=== PATIENT | male | born 1990 | race Caucasian/White ===

== ENCOUNTER 2017-04-19 22:08 | Emergency (ER) | payer SELFPAY ==
[2017-04-19] MEDS ORDERED: AZITHROMYCIN 500 MG TABLET PO ONE (22:19)
[2017-04-19] MEDS ORDERED: HYDROCODONE/APAP 5/325MG TABLET PO ONE (22:19)
--- NOTE | 2017-04-19 22:20 | Emergency Department Record ---
History of Present Illness - General Stated complaint: TOOTH PAIN Time Seen by Provider: 04/19/17 22:10 Source: Patient - History of Present Illness Initial comments: The patient has had 3 weeks of tooth pain of his left upper first incisor. Now the pain has spread to his entire upper incisors and into his face alongside his nose. He saw a dentist in the past for this but now it is worse. No relief with tylenol. He doesn't take NSAIDS because he only has one kidney. MD complaint: Tooth pain - Related Data Previous Rx's Medication Instructions Recorded Azithromycin [Zithromax] 500 mg PO DAILY #4 tab 04/19/17 Hydrocodone/Acetaminophen [Haslet 1 each PO Q6HR #20 tablet 04/19/17 5-325 Tablet] Allergies Allergy/AdvReac Type Severity Reaction Status Date / Time Penicillins Allergy Intermediate HIVES Verified 05/12/16 18:09 venom-honey bee Allergy DIFFICULTY Verified 05/12/16 18:09 [bee venom (honey bee)] BREATHING Review of Systems Reviewed: No additional complaints except as noted below Constitutional: Reports: As per HPI. Denies: Chills, Fever, Malaise, Night sweats, Weakness, Weight change Eyes: Reports: As per HPI. Denies: Eye discharge, Eye pain, Photophobia, Vision change ENT: Reports: As per HPI. Denies: Congestion, Dental pain, Ear pain, Epistaxis , Hearing loss, Throat pain Respiratory: Reports: As per HPI. Denies: Cough, Dyspnea, Hemoptysis, Stridor, Wheezes Cardiovascular: Reports: As per HPI. Denies: Arrhythmia, Chest pain, Dyspnea on exertion, Edema, Murmurs, Orthopnea, Palpitations, Paroxysmal nocturnal dyspnea, Rheumatic Fever, Syncope Endocrine: Reports: As per HPI. Denies: Fatigue, Heat or cold intolerance, Polydipsia, Polyuria Gastrointestinal: Reports: As per HPI. Denies: Abdominal pain, Constipation, Diarrhea, Hematemesis, Hematochezia, Melena, Nausea, Vomiting Genitourinary: Reports: As per HPI. Denies: Dysuria, Frequency, Hematuria, Incontinence, Retention, Testicular pain, Testicular mass, Urgency Musculoskeletal: Reports: As per HPI. Denies: Arthralgia, Back pain, Gout, Joint swelling, Myalgia, Neck pain Skin: Reports: As per HPI. Denies: Bruising, Change in color, Change in hair/ nails, Lesions, Pruritus, Rash Neurological: Reports: As per HPI. Denies: Abnormal gait, Confusion, Headache, Numbness, Paresthesias, Seizure, Tingling, Tremors, Vertigo, Weakness Psychiatric: Reports: As per HPI. Denies: Anxiety, Auditory hallucinations, Depression, Homicidal thoughts, Suicidal thoughts, Visual hallucinations Hematological/Lymphatic: Reports: As per HPI. 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 negative: External canal tenderness Nasal Exam: Normal inspection. negative: Discharge, Sinus tenderness Mouth exam: Normal external inspection, Tongue normal Teeth exam: Normal inspection. negative: Dental caries Throat exam: Normal inspection. negative: Tonsillar erythema, Tonsillar exudate Image of Mouth/Teeth: 1 - tooth #9 tender with pain extending into and past the gum line and up to beside the nares - Neck Neck exam: Normal inspection, Full ROM. negative: Tenderness - Respiratory Respiratory exam: Normal lung sounds bilaterally. negative: Respiratory distress - Cardiovascular Cardiovascular Exam: Regular rate, Normal rhythm, Normal heart sounds - GI/Abdominal GI/Abdominal exam: Soft, Normal bowel sounds. negative: Tenderness - Rectal Rectal exam: Deferred - exam: Deferred - Extremities Extremities exam: Normal inspection, Full ROM, Normal capillary refill. negative: Tenderness - Back Back exam: Reports: Normal inspection, Full ROM. Denies: Muscle spasm, Rash noted, Tenderness - Neurological Neurological exam: Alert, Normal gait, Oriented X3, Reflexes normal - Psychiatric Psychiatric exam: Normal affect, Normal mood - Skin Skin exam: Dry, Intact, Normal color, Warm Medical Decision Making - Management Options MDM Management: Additional Work-up Planned (e.g. ADM/Transfer/OP Study) (Follow up with Dentist in office this week.) Disposition Disposition: Discharge Clinical Impression: Pain, dental Disposition: Home, Self-Care Condition: (1) Good Instructions: Dental Abscess (ED), Toothache (ED) Additional Instructions: Take antibiotics as directed until gone Take norco one every 6 hours as needed for pain. Follow up with dentist in office this week as previously arranged. Soft diet. Prescriptions: Hydrocodone/Acetaminophen [Haslet 5-325 Tablet] 1 each PO Q6HR #20 tablet Azithromycin [Zithromax] 500 mg PO DAILY #4 tab Quality - Quality Measures Quality Measures: N/A - Blood Pressure Screening Systolic Measurement: ~ Screening for High Blood Pressure: < Normal BP, F/U Not Required > [G8783] Normal BP Follow-up Interventions: No follow-up required
== END 2017-04-19 22:44 | disposition home or self-care (01) ==
LOC: ER 22:08
DX: K08.89 Other specified disorders of teeth and supporting structures (principal)
CPT/HCPCS: 99282

== ENCOUNTER 2017-06-27 12:32 | Emergency (ER) | payer SELFPAY ==
--- NOTE | 2017-06-27 13:53 | Emergency Department Record ---
History of Present Illness - General Chief Complaint: Laceration(s) Stated Complaint: CUT ON RT HAND, MAY HAVE GLASS IN IT Time Seen by Provider: 06/27/17 12:54 Source: Patient Mode of Arrival: Ambulatory Limitations: No limitations - History of Present Illness Initial Commments: pt cut his hand on glass that shattered yesterday. it is already closing but pt fears he has glass in it. Onset/Timin -: Days(s) Extremity Location: Right: Hand Place: Home Context: Accidental Associated Symptoms: None - Sonya Coma Scale Eye Response: (4) Open spontaneously Motor Response: (6) Obeys commands Verbal Response: (5) Oriented [place] Total: 15 - Related Data Hx Tetanus Toxoid Vaccination: Yes Year of Tetanus Vaccination: 2013 Home Medications Medication Instructions Recorded Confirmed Last Taken No Home Med [NO HOME MEDS] 06/27/17 06/27/17 Unknown Allergies Allergy/AdvReac Type Severity Reaction Status Date / Time Penicillins Allergy Intermediate HIVES Verified 05/12/16 18:09 venom-honey bee Allergy DIFFICULTY Verified 05/12/16 18:09 [bee venom (honey bee)] BREATHING Travel Screening - Travel/Exposure Within Last 30 Days Have you traveled within the last 30 days?: No - Travel/Exposure Within Last Year Have you traveled outside the [place] in the last year?: No - Additonal Travel Details Have you been exposed to anyone with a communicable illness?: No - Travel Symptoms Symptom Screening: None Review of Systems Reviewed: No additional complaints except as noted below Constitutional: Reports: As per HPI. Denies: Chills, Fever, Malaise, Night sweats, Weakness, Weight change Eyes: Reports: As per HPI. Denies: Eye discharge, Eye pain, Photophobia, Vision change ENT: Reports: As per HPI. Denies: Congestion, Dental pain, Ear pain, Epistaxis , Hearing loss, Throat pain Respiratory: Reports: As per HPI. Denies: Cough, Dyspnea, Hemoptysis, Stridor, Wheezes Cardiovascular: Reports: As per HPI. Denies: Arrhythmia, Chest pain, Dyspnea on exertion, Edema, Murmurs, Orthopnea, Palpitations, Paroxysmal nocturnal dyspnea, Rheumatic Fever, Syncope Endocrine: Reports: As per HPI. Denies: Fatigue, Heat or cold intolerance, Polydipsia, Polyuria Gastrointestinal: Reports: As per HPI. Denies: Abdominal pain, Constipation, Diarrhea, Hematemesis, Hematochezia, Melena, Nausea, Vomiting Genitourinary: Reports: As per HPI. Denies: Dysuria, Frequency, Hematuria, Incontinence, Retention, Testicular pain, Testicular mass, Urgency Musculoskeletal: Reports: As per HPI. Denies: Arthralgia, Back pain, Gout, Joint swelling, Myalgia, Neck pain Skin: Reports: As per HPI. Denies: Bruising, Change in color, Change in hair/ nails, Lesions, Pruritus, Rash Neurological: Reports: As per HPI. Denies: Abnormal gait, Confusion, Headache, Numbness, Paresthesias, Seizure, Tingling, Tremors, Vertigo, Weakness Psychiatric: Reports: As per HPI. Denies: Anxiety, Auditory hallucinations, Depression, Homicidal thoughts, Suicidal thoughts, Visual hallucinations Hematological/Lymphatic: Reports: As per HPI. 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 negative: External canal tenderness Nasal Exam: Normal inspection. negative: Discharge, Sinus tenderness Mouth exam: Normal external inspection, Tongue normal Teeth exam: Normal inspection. negative: Dental caries Throat exam: Normal inspection. negative: Tonsillar erythema, Tonsillar exudate - Neck Neck exam: Normal inspection, Full ROM. negative: Tenderness - Respiratory Respiratory exam: Normal lung sounds bilaterally. negative: Respiratory distress - Cardiovascular Cardiovascular Exam: Regular rate, Normal rhythm, Normal heart sounds - GI/Abdominal GI/Abdominal exam: Soft, Normal bowel sounds. negative: Tenderness - Rectal Rectal exam: Deferred - exam: Deferred - Extremities Extremities exam: Normal inspection, Full ROM, Normal capillary refill. negative: Tenderness Image of Hand: 1 - 2.8 cm lac that is closed already - Back Back exam: Reports: Normal inspection, Full ROM. Denies: Muscle spasm, Rash noted, Tenderness - Neurological Neurological exam: Alert, CN II-XII intact, Normal gait, Oriented X3 - Psychiatric Psychiatric exam: Normal affect, Normal mood - Skin Skin exam: Dry, Intact, Normal color, Warm Course Vital Signs 06/27/17 12:42 Temperature 98.3 F Pulse Rate 85 Respiratory 16 Rate Blood Pressure 122/94 Pulse Ox 97 - Reevaluation(s) Reevaluation #1: 06/27/17 13:52 xray- no fb Disposition Disposition: Discharge Clinical Impression: Laceration Disposition: Home, Self-Care Condition: (1) Good Instructions: Laceration (ED) Additional Instructions: follow up with family doctor. return sooner if worse Forms: Patient Portal Access Quality - Quality Measures Quality Measures: N/A - Blood Pressure Screening Does Patient Have Any of the Following: No Blood Pressure Classification: Hypertensive Reading Systolic Measurement: 122 Diastolic Measurement: 94 Screening for High Blood Pressure: < Pre-Hypertensive BP, F/U Documented > [ G8950] Pre-Hypertensive Follow-up Interventions: Follow-up with rescreen every year.
--- NOTE | 2017-06-28 16:24 | RADIOLOGY REPORT ---
DATE: 06/27/2017 at 1305 HOURS. EXAM: RIGHT HAND. HISTORY: Hand laceration. Possible glass foreign body. Injury to the proximal thumb along the palmar surface. TECHNIQUE: Three views of the right hand were obtained. COMPARISON: 02/02/2015. FINDINGS: The bones appear intact. There is no visible acute fracture or dislocation. There is no radiopaque foreign body. There is an old, healed fracture within the proximal aspect of the fourth metacarpal. IMPRESSION: NO ACUTE FRACTURE OR FOREIGN BODY. JOB NUMBER: [id number] MTDD
== END 2017-06-27 13:58 | disposition home or self-care (01) ==
LOC: ER 12:32
DX: S61.411A Laceration without foreign body of right hand, initial encounter (principal); W25.XXXA Contact with sharp glass, initial encounter; Y92.009 Unspecified place in unspecified non-institutional (private) residence as the place of occurrence of the external cause
CPT/HCPCS: 99283

== ENCOUNTER 2017-12-06 15:38 | Emergency (ER) | payer BC ==
--- NOTE | 2017-12-06 15:58 | Emergency Department Record ---
History of Present Illness - General Chief complaint: Extremity Problem Stated complaint: RT SHELBYER PAIN Time Seen by Provider: 12/06/17 15:48 Source: Patient Mode of Arrival: Ambulatory Limitations: No limitations - History of Present Illness Initial comments: The patient is here due to a 2 week hx of R shoulder pain which now is worse for 3 days. He denies any fall, trauma, or injury and just states the pain is much worse with any ROM. There is no arm numbness or tingling. MD Complaint: Extremity pain, Joint pain Onset/Timin -: Week(s) Location: Right, Shoulder History of Same: No Radiation: None Severity scale (1-10): 6 Quality: Sharp Consistency: Constant Improves with: Immobilization Worsens with: Exertion Associated Symptoms: Denies other symptoms - Related Data Home Medications Medication Instructions Recorded Confirmed Last Taken Pregabalin [Lyrica] 150 mg PO BID 12/06/17 12/06/17 12/06/17 Previous Rx's Medication Instructions Recorded Hydrocodone/Acetaminophen [Brandon 1 each PO QID #12 tablet 12/06/17 5-325 Tablet] Allergies Allergy/AdvReac Type Severity Reaction Status Date / Time Penicillins Allergy Intermediate HIVES Verified 12/06/17 15:42 venom-honey bee Allergy DIFFICULTY Verified 12/06/17 15:42 [bee venom (honey bee)] BREATHING Travel Screening - Travel/Exposure Within Last 30 Days Have you traveled within the last 30 days?: No - Travel/Exposure Within Last Year Have you traveled outside the [place] 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 negative: Tenderness - Respiratory Respiratory exam: Normal lung sounds bilaterally. negative: Respiratory distress - Cardiovascular Cardiovascular Exam: Regular rate, Normal rhythm, Normal heart sounds - Extremities Extremities exam: Normal inspection (There is no swelling, bruising, or erythema. ), Tenderness (There is tenderness to the lateral and posterior shoulder mainly.), Other (The R arm is NVI with normal pulses.). negative: Full ROM (There is decreased ROM to the R shoulder due to pain.), Joint swelling , Normal capillary refill - Neurological Neurological exam: Alert. negative: Motor sensory deficit Course Vital Signs 12/06/17 15:44 Temperature 98.5 F Pulse Rate 97 H Respiratory 16 Rate Blood Pressure 116/85 Pulse Ox 100 - Reevaluation(s) Reevaluation #1: I did discuss the xrays with the patient and the need for F/U with his PCP for an MRI. 12/06/17 16:36 Medical Decision Making - Data Complexity MDM Data: X-Ray Ordered and/or Reviewed - Radiology Data Radiology results: Report reviewed (R shoulder: No acute changes. Poss developmental acromial abnormality which could lead to a rotator cuff issue.) Disposition Disposition: Discharge Clinical Impression: Shoulder pain, right Qualifiers: Chronicity: acute Qualified Code(s): M25.511 - Pain in right shoulder Disposition: Home, Self-Care Condition: (2) Stable Instructions: Shoulder Pain (ED) Additional Instructions: Please use ice to the R shoulder when possible and take Tylenol or Brandon for pain. Please see your family doctor this week for recheck and to have an MRI ordered. Return to the ER for any worsening symptoms. Prescriptions: Hydrocodone/Acetaminophen [Brandon 5-325 Tablet] 1 each PO QID #12 tablet Forms: Patient Portal Access Time of Disposition: 16:38 Quality - Quality Measures Quality Measures: N/A - Blood Pressure Screening View Details: Yes Does Patient Have Any of the Following: No Blood Pressure Classification: Pre-Hypertensive BP Reading Systolic Measurement: 116 Diastolic Measurement: 85 Screening for High Blood Pressure: < Pre-Hypertensive BP, F/U Documented > [ G8950] Pre-Hypertensive Follow-up Interventions: Referral to alternative/primary care provider.
--- NOTE | 2017-12-07 20:23 | RADIOLOGY REPORT ---
EXAM: SHOULDER, RIGHT HISTORY: WORSENING RIGHT SHOULDER PAIN WITH DIFFICULTY RAISING ARM. NO KNOWN INJURY. TECHNIQUE: Internal and external humerus rotation AP views of the right shoulder are obtained as well as a scapular Y-view. COMPARISON: None. ENCOUNTER: Initial. FINDINGS: There is normal bone mineralization. No acute fracture, dislocation, or destructive bone lesion is seen. There are early hypertrophic changes of the acromioclavicular joint. The glenohumeral joint is maintained. There is a laterally downward-sloping acromion predisposing to rotator cuff impingement. There is apparent chronic deformity of the mid right clavicle consistent with old healed fracture. IMPRESSION: 1. NO ACUTE BONE NOR JOINT ABNORMALITY. 2. EARLY HYPERTROPHIC CHANGE OF THE ACROMIOCLAVICULAR JOINT QUESTIONED. 3. THE ACROMION PROCESS IS LATERALLY DOWNWARD-SLOPING ON A DEVELOPMENTAL BASIS PREDISPOSING TO IMPINGEMENT ON THE ROTATOR CUFF. 4. OLD HEALED FRACTURE DEFORMITY OF THE MID RIGHT CLAVICLE QUESTIONED. JOB NUMBER: [id number] MTDD
== END 2017-12-06 16:52 | disposition home or self-care (01) ==
LOC: ER 15:38
DX: M25.511 Pain in right shoulder (principal); F17.210 Nicotine dependence, cigarettes, uncomplicated
CPT/HCPCS: 99283

== ENCOUNTER 2018-04-06 11:19 | Emergency (ER) | payer BC ==
--- NOTE | 2018-04-06 11:22 | Emergency Department Record ---
History of Present Illness - General Chief Complaint: Suicidal thoughts Stated Complaint: SUICIDAL Time Seen by Provider: 04/06/18 11:22 Source: Patient, Family Mode of Arrival: Ambulatory Limitations: No limitations - History of Present Illness Initial Comments: 28 yo male presents with family. He states he went to last night then admits to going out and drinking beer. He did not go home. His SO became worried. He was found and had a verbal altercation. He was admitted 2 weeks ago for SI at [facility]. He states that visit was a helpful. He states he was given instructions on calming methods, anxiety control, and copying mechanism. He denies that he has any thoughts of self harm. He does not want to . He states his children prevent him form wanting to kill himself. He does feel unsafe or want to harm himself or others. He states he has plans for safe areas, copying mechanisms for stress. His SO presents with text messages stating he has nothing to live for and want to . These texts are new from last night. She states she feels he is a significant risk to harm himself. The patient admits to these texts with statements of SI. He states the statements were meant to be confidential. MD Complaint: Suicidal ideation -: Minutes(s) Associated Psychiatric Symptoms: None History of same: Yes (No current symptoms) Improves With: Therapy Worsens With: None Context: Other Associated Symptoms: Denies other symptoms Treatments Prior to Arrival: None If Self Harm: Other (Denies all thoughts of self harm) - Sonya Coma Scale Eye Response: (4) Open spontaneously Motor Response: (6) Obeys commands Verbal Response: (5) Oriented [place] Total: 15 - Related Data Home Medications Medication Instructions Recorded Confirmed Last Taken Duloxetine HCl [Cymbalta] 30 mg PO DAILY 04/06/18 04/06/18 1 Day Ago ~04/05/18 Trazodone HCl 150 mg PO QHS 04/06/18 04/06/18 1 Day Ago ~04/05/18 Allergies Allergy/AdvReac Type Severity Reaction Status Date / Time Penicillins Allergy Intermediate HIVES Verified 04/06/18 11:34 venom-honey bee Allergy DIFFICULTY Verified 04/06/18 11:34 [bee venom (honey bee)] BREATHING Review of Systems Constitutional: Denies: Chills, Fever, Weakness Eyes: Denies: Eye discharge ENT: Denies: Congestion, Throat pain Respiratory: Denies: Cough Cardiovascular: Denies: Chest pain, Palpitations, Syncope Endocrine: Denies: Fatigue Gastrointestinal: Denies: Abdominal pain, Diarrhea, Nausea, Vomiting Genitourinary: Denies: Dysuria, Frequency, Hematuria Musculoskeletal: Denies: Arthralgia, Back pain, Myalgia Skin: Denies: Bruising, Change in color, Rash Neurological: Denies: Headache, Numbness, Weakness Psychiatric: Reports: Depression. 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 The very clear thoughts of self harm were reviewed I explained to the patient that his words are important and do effect leaving He admits to the texts and the thoughts I explained he will be placed on certification as his safety is not clear at this time. 04/06/18 13:08 The labs were reviewed Positive for cocaine and marijuana ETOH 0.06 He is medically cleared for transfer 04/06/18 16:28 The patient was accepted to [facility] under care of Dr Smith Medical Decision Making - Lab Data Result diagrams: 04/06/18 12:34 04/06/18 12:34 Disposition Disposition: Discharge Clinical Impression: Suicidal ideations, Depression Disposition: [facility] Transfer To: Merged With [facility] Reason For Transfer: Suicidal Ideation Accepting Physician: Luis Time Discussed w/Accepting Physician: 16:28 Condition: (1) Good Forms: Patient Portal Access Time of Disposition: 16:28 Quality - Quality Measures Quality Measures: N/A - Blood Pressure Screening Does Patient Have Any of the Following: No Blood Pressure Classification: Pre-Hypertensive BP Reading Systolic Measurement: 127 Diastolic Measurement: 83 Screening for High Blood Pressure: < Pre-Hypertensive BP, F/U Documented > [ G8950] Pre-Hypertensive Follow-up Interventions: Referral to alternative/primary care provider.
[2018-04-06 12:43] LABS: BASO % 0.6 % (0-6); EOS % 0.6 % (0-6); HEMATOCRIT 43.1 % (42.0-52.0); HEMOGLOBIN 14.6 gm/dl (14.0-18.0); LYMPH % 37.5 % (16-45); MEAN CELL VOLUME 90.9 fl (81-97); MEAN CORPUSCULAR HEMOGLOBIN 30.8 pg (27-33); MEAN CORPUSCULAR HGB CONC 33.9 g/dl (32-36); MEAN PLATELET VOLUME 9.3 fl (7.4-10.4); MONO % 8.3 % (0-9); PLATELET COUNT 258 K/uL (130-400); RED BLOOD COUNT 4.74 M/uL (4.40-5.70); RED CELL DISTRIBUTION WIDTH 13.6 % (11.5-14.5); WHITE BLOOD COUNT W/O DIFF 5.3 K/uL (4.2-12.2)
[2018-04-06 12:50] LABS: AMPHETAMINE SCREEN URINE NOT DETECTED; BARBITURATE SCREEN URINE NOT DETECTED; BENZODIAZEPINE SCREEN URINE NOT DETECTED; COCAINE SCREEN URINE DETECTED; METHADONE SCREEN URINE NOT DETECTED; METHAMPHETAMINE SCREEN NOT DETECTED; OPIATE SCREEN URINE NOT DETECTED; OXYCODONE SCREEN URINE NOT DETECTED; PHENCYCLIDINE SCREEN URINE NOT DETECTED; PROPOXYPHENE SCREEN URINE NOT DETECTED; THC SCREEN URINE DETECTED; TRICYCLIC ANTIDEPRESSANT SCRN NOT DETECTED
[2018-04-06 12:57] LABS: BLOOD UREA NITROGEN 4 mg/dL (6-20); CREATININE 0.8 mg/dL (0.7-1.2); EST GLOMERULAR FILTRATION RATE > 60 mL/min
[2018-04-06 12:58] LABS: TOTAL PROTEIN 6.5 g/dL (6.6-8.7)
[2018-04-06 12:59] LABS: ALCOHOL 0.061 g/dL (0-0.010)
[2018-04-06 13:00] LABS: GLUCOSE,RANDOM 76 mg/dL (74-109)
[2018-04-06 13:02] LABS: ALT/SGPT 25 U/L (<41); AST/SGOT 24 U/L (10.0-50.0)
[2018-04-06 13:03] LABS: ALBUMIN 4.3 g/dL (4.0-5.0); ALKALINE PHOSPHATASE 51 U/L (40-129)
[2018-04-06 13:05] LABS: ACETAMINOPHEN < 5.0 ug/mL (10.0-30.0); SALICYLATE < 0.3 mg/dL (2.8-20)
[2018-04-06] MEDS ORDERED: ACETAMINOPHEN 500 MG TABLET PO ONE (13:08)
[2018-04-06] MEDS ORDERED: ALPRAZOLAM 1 MG TAB PO ONE ×2 (13:19→17:27)
[2018-04-06] MEDS ORDERED: IBUPROFEN 600 MG TABLET PO ONE (14:20)
== END 2018-04-06 17:32 ==
LOC: ER 11:19
DX: R45.851 Suicidal ideations (principal); F32.9 Major depressive disorder, single episode, unspecified; F17.210 Nicotine dependence, cigarettes, uncomplicated
CPT/HCPCS: 99285 ×2; 85025; 80053; 80305; G0480 ×3; 80320; 80329